=== PATIENT | male | born 1965 | race Caucasian/White ===

== ENCOUNTER 2019-12-19 05:39 | Emergency (ER) | payer BC ==
[~2019-12-19] VITALS: Ht 180.3 cm; Wt 82.7 kg
[~2019-12-19 05:39] MED LIST: ALLO100T PO; ASPI-529 PO; CHOL400T14 PO; COU4T PO; OMEP20TA5 PO
[2019-12-19] MEDS ORDERED: glucagon, human recombinant 1mg kit IV ONE (06:15)
[2019-12-19] MEDS ORDERED: ondansetron/PF 4mg/2ml inj IV ONE (06:15)
[2019-12-19 09:00] VITALS: BP 145/79
[2019-12-19] MEDS ORDERED: fentaNYL/PF 50MCG/1 ML 2ML syringe ONE (09:09)
[2019-12-19] MEDS ORDERED: MIDAZolam 5mg/5ml vial ONE (09:09)
[2019-12-19] MEDS ORDERED: LIDOcaine Viscous 15ml cup ONE (09:10)
[2019-12-19 09:47] VITALS: BP 139/83
[2019-12-19 09:57] VITALS: BP 126/75
[2019-12-19 10:07] VITALS: BP 132/75
[2019-12-19 10:17] VITALS: BP 139/73
[2019-12-19 10:29] VITALS: BP 132/81
== END 2019-12-19 10:32 | disposition home or self-care (01) ==
LOC: ER 05:40
DX: T17.228A Food in pharynx causing other injury, initial encounter (principal); Z79.01 Long term (current) use of anticoagulants; Z79.82 Long term (current) use of aspirin; Z79.899 Other long term (current) drug therapy; Y92.89 Other specified places as the place of occurrence of the external cause
CPT/HCPCS: 43247; 96374; 96375; 99152; 99285; J1610; J2250; J2405; J3010; J7040; A4620